=== PATIENT | male | born 1995 | race Caucasian/White ===

== ENCOUNTER 2025-04-25 05:46 | Emergency (ER) | payer BC ==
[2025-04-25] MEDS ORDERED: Mag-Al 1200 mg/1200 mg/30 ML UDCUP ONE (06:04)
[2025-04-25] MEDS ORDERED: Lidocaine Viscous Sol 2% 15 ml UD Cup ONE (06:05)
[2025-04-25] MEDS ORDERED: Famotidine 20 MG TAB ONE (06:06)
== END 2025-04-25 06:32 | disposition home or self-care (01) ==
LOC: CSHERS 05:46
DX: K29.00 Acute gastritis without bleeding (principal); K21.00 Gastro-esophageal reflux disease with esophagitis, without bleeding; M47.9 Spondylosis, unspecified; F17.290 Nicotine dependence, other tobacco product, uncomplicated
CPT/HCPCS: 71045; 93005